=== PATIENT | female | born 1960 | race Caucasian/White ===

== ENCOUNTER → 2023-05-20 | Outpatient (RCR) | payer OTHER | LOC: WSOH | DX: S83.8X1A Sprain of other specified parts of right knee, initial encounter (principal); Y99.0 Civilian activity done for income or pay; I10 Essential (primary) hypertension; F41.9 Anxiety disorder, unspecified ==

== ENCOUNTER → 2023-10-12 | Outpatient (CLI) | payer BC | LOC: MC.RAD 15:47 | DX: Z12.31 Encounter for screening mammogram for malignant neoplasm of breast (principal) ==